=== PATIENT | female | born 1950 | race Caucasian/White ===

== ENCOUNTER 2017-04-20 15:45 | Emergency (ER) | payer OTHER ==
[~2017-04-20] VITALS: Ht 167.6 cm; Wt 83.9 kg
--- NOTE | ~2017-04-20 | CR72 ---
[facility] A Service of [facility] & [facility] RADIOLOGY TEXT RESULTS PATIENT: ALEENA HASSAN LOCATION: [facility] : 52 UNIT #: [id number] AGE: [address]: Sho Hernandez MD SEX: F ORDER DR: [id number] [facility] [address] [place], [place] [address] [id number] E MR#: [id number] Acc #: [id number] NAME: ALEENA HASSAN : 1950 SEX: F STUDY DATE/TIME: 04/20/2017 17:44 UNIT: [facility] ROOM: STUDY DESCRIPTION: CR Chest Single View Portable Attending Physician: Sho Hernandez M.D. Referring Physician: [facility] Ordering Physician: Sho Hernandez M.D. Primary Care Physician: [facility] MEDICAL IMAGING REPORT This report is preliminary unless electronic signature is present EXAM Portable chest 04/20/2017. HISTORY Shortness of breath, syncope and dizziness beginning 04/20/2017. Benign essential hypertension. FINDINGS There is mild cardiac enlargement. The lungs are clear. There are no pleural effusions. IMPRESSION Mild cardiomegaly. No active pulmonary disease. Dictated by... Chester Ledezma M.D. THIS IS AN ELECTRONICALLY VERIFIED REPORT Chester Ledezma M.D. at 04/21/2017 10:22 AM KRT/gz TD: 04/21/2017 07:58 JOB #: [id number] MEDICAL IMAGING REPORT Page 1 of 1 COPY
--- NOTE | ~2017-04-20 | EKG ---
PATIENT: ALEENA HASSAN UNIT #: [id number] Ventricular Rate: 68 BPM Atrial Rate: 68 BPM P-R Interval: 146 ms QRS Duration: 88 ms Q-T Interval: 404 ms QTC Calculation(Bezet): 429 ms P [place]: 57 degrees Calculated R [place]: 13 degrees Calculated T [place]: 48 degrees Diagnosis Line: Sinus rhythm with Premature supraventricular Diagnosis Line: complexes Diagnosis Line: Otherwise normal ECG Diagnosis Line: When compared with ECG of 05-MAR-2015 06:07, Diagnosis Line: Sinus rhythm has replaced Ectopic atrial rhythm Diagnosis Line: Vent. rate has decreased BY 94 BPM Diagnosis Line: Questionable change in QRS duration Diagnosis Line: Confirmed by BLANCO DAVID MD ([id number]) on 04/21/2017 Diagnosis Line: 7:12:00 PM INTERPRETING MD: FRANKIE CRUZ
--- NOTE | ~2017-04-20 | CT71 ---
[facility] A Service of [facility] [place] [facility] RADIOLOGY TEXT RESULTS PATIENT: ALEENA HASSAN LOCATION: [facility] : 52 UNIT #: [id number] AGE: [address]: Sho Hernandez MD SEX: F ORDER DR: [id number] [facility] [address] [place], [place] [address] [id number] E MR#: [id number] Acc #: [id number] NAME: ALEENA HASSAN : 1950 SEX: F STUDY DATE/TIME: 04/20/2017 18:00 UNIT: [facility] ROOM: STUDY DESCRIPTION: CT Head Wo Contrast Attending Physician: Sho Hernandez M.D. Referring Physician: [facility] Ordering Physician: Sho Hernandez M.D. Primary Care Physician: [facility]. MEDICAL IMAGING REPORT This report is preliminary unless electronic signature is present EXAM Head CT without contrast, 04/20/2017 HISTORY Syncopal episode, dizziness at adult day care today. Hypertension. TECHNIQUE This CT exam was performed with one or more of the following radiation dose reduction techniques: automatic exposure control, adjustment of mA and/or kV according to patient size, and iterative reconstruction. FINDINGS Axial noncontrast images were obtained from the skull base to the vertex. Ventricular size and configuration are normal. There is no evidence of acute infarct or hemorrhage. There are no extra-axial fluid collections. No mass lesion or mass effect is seen. There are no skull fractures. IMPRESSION Normal noncontrast head CT. Dictated by... Chester Ledezma M.D. THIS IS AN ELECTRONICALLY VERIFIED REPORT Chester Ledezma M.D. at 04/21/2017 10:22 AM ANTONIETTA/elliot TD: 04/21/2017 08:01 JOB #: [id number] MEDICAL IMAGING REPORT Page 1 of 1 COPY
[2017-04-20 16:41] LABS: BASOPHIL# 0.1 X10e3 (0-0.3); EOSINOPHIL# 0.3 X10e3 (0-0.7); EOSINOPHIL% 2.7 % (0.0-7.0); HEMOGLOBIN 13.1 gm/dL (12.0-16.0); LYMPHOCYTE# 2.6 X10e3 (1.0-3.5); LYMPHOCYTE% 26.3 % (17.0-45.0); MEAN CELL VOLUME 87.2 FL (83-96); MEAN CORPUSCULAR HEMOGLOBIN 29.2 PG (28-34); MEAN CORPUSCULAR HGB CONC 33.5 g/dL (30-36); MONOCYTE# 0.9 X10e3 (0-1.0); MONOCYTE% 9.3 % (3.0-12.0); NEUTROPHIL% 60.7 % (40-75); PLATELET COUNT 252 X10e3 (140-420); RED BLOOD COUNT 4.47 X10e (3.90-5.30); RED CELL DISTRIBUTION WIDTH 13.8 % (11.0-15.5); WHITE BLOOD COUNT 9.8 X10e3 (4.0-10.5)
[2017-04-20 16:43] LABS: DIFF IND NO
[2017-04-20 16:52] LABS: POC - CKMB 2.1 ng/mL (0.0-7.9); POC - TROPONIN <0.05 ng/mL (<=0.05)
[2017-04-20 17:08] LABS: ALBUMIN SERUM 3.8 g/dL (3.5-5.0); ALKALINE PHOSPHATASE 77 U/L (32-92); ALT (SGPT) 29 U/L (10-40); AST (SGOT) 24 U/L (10-42); BILIRUBIN,TOTAL 0.4 mg/dL (0.2-2.0); BLOOD UREA NITROGEN 11 mg/dL (9-23); BUN/CREATININE RATIO 18.33; CALCIUM SERUM 9.1 mg/dL (8.4-10.2); CARBON DIOXIDE 30 mmol/L (22-31); CHLORIDE 105 mmol/L (100-111); CREATININE SERUM 0.6 mg/dL (0.6-1.4); GLOM FILT RATE Estimated 95.7 mL/min (>60); GLUCOSE FASTING 83 mg/dL (70-110); POTASSIUM 3.6 mmol/L (3.5-5.1); PROTEIN TOTAL SERUM 7.1 g/dL (6.0-8.3); SODIUM 142 mmol/L (135-145)
[2017-04-20 17:09] LABS: BILIRUBIN, DIRECT <0.1 mg/dL (0.0-0.2); BILIRUBIN,INDIRECT 0.3 mg/dL (0.0-0.9)
[2017-04-20 19:39] LABS: URINE SOURCE CLEAN CATCH
[2017-04-20 19:43] LABS: POC - CKMB 1.3 ng/mL (0.0-7.9); POC - TROPONIN <0.05 ng/mL (<=0.05)
[2017-04-20 19:48] LABS: URINE APPEARANCE CLEAR; URINE BILIRUBIN NEG (NEG); URINE BLOOD NEG (NEG); URINE COLOR YELLOW; URINE GLUCOSE NEG (NEG); URINE KETONE NEG (NEG); URINE LEUKOCYTE ESTERASE 2+ (NEG); URINE NITRATE NEG (NEG); URINE PROTEIN NEG (NEG); URINE SPECIFIC GRAVITY 1.008 (1.003-1.035); URINE UROBILINOGEN 0.2 MG/DL (NEG)
[2017-04-20 19:50] LABS: URINE BACTERIA AUWI NEG (NEGATIVE); URINE SQUAMOUS EPITHELIAL CELL OCC /[HPF]
[2017-04-20 19:56] LABS: CULTURE INDICATED? YES
== END 2017-04-20 20:30 | disposition home or self-care (01) ==
LOC: CED 15:45 → EDBD 17:00 → CED 17:00
PROVIDERS: Emergency Medicine
DX: R55 Syncope and collapse (principal); R51 Headache; I10 Essential (primary) hypertension; Z88.1 Allergy status to other antibiotic agents
CPT/HCPCS: 36415; 70450; 71010; 80048; 80076; 81003; 82553; 84484; 85025; 87086; 93005; 99285